=== PATIENT | female | born 1975 | race Caucasian/White ===

== ENCOUNTER 2021-06-03 02:04 | Day surgery (SDC) | payer OTHER, SELFPAY ==
[2021-05-24 13:30] VITALS: BMI 23.1
[2021-06-03 11:10] VITALS: BP 138/97; PULSE 101; RESP 18; TEMP 37.4; O2SAT 100
[2021-06-03] MEDS: LACTATED RINGERS 1,000 ML 150 ML IV CONT (11:14)
--- NOTE | 2021-06-03 11:23 | WPDGICN ---
Assessment and Plan Assessment and plan (1) Encounter for screening colonoscopy: Code(s): Z12.11 - Encounter for screening for malignant neoplasm of colon Status: Acute Assessment and Plan: Patient presents for screening colonoscopy. Her family history is significant grandmother had colon cancer mother may have had a colon polyp. Further recommendations will be given after endoscopy. GI Consult Note Consult date/time: 06/03/21 11:23 HPI: Lexie Abrams is a 45 year old female Presents for neoplasia screening. Patient reports that her own weight appetite bowel movements are normal. She did denies abdominal pain. She has had no bleeding. Family history is significant her grandmother had colon cancer, her mother had colon polyps. For these reasons patient presents for screening colonoscopy. Review of Systems Review of Systems: All systems reviewed & are unremarkable except as noted in HPI and below PMFSH Family History Family History (Updated 04/14/16 @ 23:21 by DOCTOR UNKNOWN) Mother Hypertension Father Patient's father is in good health Grandparent Carcinoma of colon Sibling Family history of malignant neoplasm of thyroid Social History Social History Smoking status: Never smoker Alcohol intake: current Drinks per week: 3 Living arrangements: with family Spiritual care concerns: No Meds Home Medications and Allergies Home Medications Medication Instructions Recorded Confirmed Type No Home Medications 05/24/21 05/24/21 History Allergies Allergy/AdvReac Type Severity Reaction Status Date / Time No Known Allergies Allergy Mild Unverified 06/03/21 11:09 Vital Signs Vital Signs - 24 hr 06/03/21 11:10 Temperature 99.4 F Pulse Rate 101 H Respiratory Rate 18 Blood Pressure 138/97 H Pulse Oximetry 100 Exam Narrative: Physical exam reveals patient to be alert. Vital signs stable. HEENT exam is unremarkable lungs are clear to auscultation and percussion heart is without murmur or extra sounds. Abdominal exam bowel sounds are present soft nontender with no hepatosplenomegaly. Digital external rectal exam is normal.
--- NOTE | 2021-06-03 12:04 | WPDANESEPPF ---
Anes - Initial Pre Proc Eval Procedure: Operation Date: 06/03/21 12:30 Proposed Procedures p Screening Colonoscopy - Ulises Hutchinson MD Date/Time: 06/03/21 12:04 Surgeon: Ulises Hutchinson MD Pre Op Diagnosis: neoplasm screening z12.11 Patient Data Age: 45 Gender: F Height: 1.75 m Weight: 59.6 kg Last Vital Signs Temp 99.4 F 06/03/21 11:10 Pulse 101 H 06/03/21 11:10 Resp 18 06/03/21 11:10 BP 138/97 H 06/03/21 11:10 Pulse Ox 100 06/03/21 11:10 Allergies Allergy/AdvReac Type Severity Reaction Status Date / Time No Known Allergies Allergy Mild Unverified 06/03/21 11:09 Home Medications Medication Instructions Recorded Confirmed Type No Home Medications 05/24/21 05/24/21 History Patient hx anesthesia problems: none Family hx anesthesia problems: none PMFSH Past Medical History Medical History (Updated 06/03/21 @ 12:01 by Jay Moulton MD) Healthy adult Family History Family History (Updated 04/14/16 @ 23:21 by DOCTOR UNKNOWN) Mother Hypertension Father Patient's father is in good health Grandparent Carcinoma of colon Sibling Family history of malignant neoplasm of thyroid Social History Social History Smoking status: Never smoker Alcohol intake: current Drinks per week: 3 Living arrangements: with family Spiritual care concerns: No Anes - Eval Final PreProcedure Day of Procedure 06/03/21 12:04 Patient weight: normal Heart: regular rate and rhythm Lungs: clear to auscultation Airway: Mallampati scale class II Neurological: alert and oriented Last oral intake: >/= 8 hours ASA classification: I Emergent: no Anesthetic plan: proceed Anesthesia type and monitoring: general GIVS and standard monitoring Informed Consent: The patient's anesthetic plan and its attendant risks and benefits were discussed with the patient/family/POA. Questions were solicited and answers provided to the satisfaction of the patient/family/POA.
[2021-06-03 12:26] VITALS: BP 102/69; PULSE 78; RESP 18; O2SAT 100
[2021-06-03 12:36] VITALS: BP 120/79; PULSE 78; RESP 18; O2SAT 100
[2021-06-03 12:46] VITALS: BP 124/80; PULSE 78; RESP 18; O2SAT 100
== END 2021-06-03 12:55 | disposition home or self-care (01) ==
PROVIDERS: PCP Emergency Medicine; Visit Provider Internal Medicine Gastroenterology
PROC: 0DJD8ZZ Inspection of Lower Intestinal Tract, Via Natural or Artificial Opening Endoscopic (ICD-10-PCS; CPT 45378; principal; 2021-06-03 12:30)
DX: Z12.11 Encounter for screening for malignant neoplasm of colon (principal); K64.8 Other hemorrhoids; Z83.71 Family history of colonic polyps
CPT/HCPCS: 45378; J2001; J2704; J7120

== ENCOUNTER → 2022-07-26 09:42 | Outpatient (CLI) | payer OTHER, SELFPAY ==
--- NOTE | ~2022-07-26 | MMUS_ITS ---
EXAMINATION: MM diagnostic ashwini LT w nan, US breast LT complete HISTORY: Small indeterminate nodular density reported in the left breast on CC view of outside screen ing mammogram of 06/28/2022 TECHNIQUE: Additional 3-D tomosynthesis images of the left breast were performed and synthetic 2-D im ages were generated. CAD analysis was submitted and interpreted. High resolution complete left breast ultrasound including all 4 quadrants and subareolar area was performed. COMPARISON: 06/28/2022 [facility] bilateral screening mammogram BREAST PARENCHYMAL COMPOSITION: The breasts are heterogeneously dense, which may obscure small masses . FINDINGS: MAMMOGRAPHIC FINDINGS: No suspicious mass, architectural distortion, malignant calcification, skin thickening or retraction of the left breast is detected. ULTRASOUND: No suspicious mass or shadowing, cyst or other significant sonographic finding is noted in the left b reast. IMPRESSION: 1. No mammographic evidence of malignancy 2. Routine mammographic screening is recommended BI-RADS Category 1: Negative Reviewed, dictated and finalized at location A. 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 No mammographic evidence of malignancy 2. Routine mammographic screening is recommended BI-RADS Category 1: Negative
== END ==
PROVIDERS: PCP Obstetrics & Gynecology; Visit Provider Obstetrics & Gynecology
DX: R92.8 Other abnormal and inconclusive findings on diagnostic imaging of breast (principal)
CPT/HCPCS: 76641; 77061; 77065; G0279

== ENCOUNTER → 2023-10-18 15:09 | Outpatient (CLI) | payer OTHER, SELFPAY ==
--- NOTE | ~2023-10-18 | MM_ITS ---
EXAMINATION: MM screening ashwini BI w nan HISTORY: Screening TECHNIQUE: Craniocaudal and mediolateral oblique 3-D tomosynthesis images were obtained and synthetic 2-D images were generated. CAD analysis was submitted and interpreted. COMPARISON: Comparison to multiple prior studies sequentially, with oldest reviewed study dated 11/28. BREAST PARENCHYMAL COMPOSITION: Dense: The breasts are extremely dense, which lowers the sensitivity of mammography. FINDINGS: There is no evidence of suspicious mass, calcification, or architectural distortion to sugg est malignancy in either breast. There has been no suspicious interval change. IMPRESSION: 1. No mammographic evidence of malignancy. 2. Recommend routine screening mammography in one year. BI-RADS Category 1: Negative Reviewed, dictated and finalized at location A. 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
== END ==
PROVIDERS: PCP Obstetrics & Gynecology; Visit Provider Obstetrics & Gynecology
DX: Z12.31 Encounter for screening mammogram for malignant neoplasm of breast (principal)
CPT/HCPCS: 77063; 77067

== ENCOUNTER 2024-08-18 05:59 | Emergency (ER) | payer OTHER, SELFPAY ==
[2024-08-18] VITALS (21 sets, daily range): BP systolic 113–135; BP diastolic 69–94; PULSE 78–119; RESP 14–22; TEMP 35.7–36.8; O2SAT 92–99
--- NOTE | 2024-08-18 07:00 | ED.GENADULT ---
HPI - General Adult General Chief complaint: Unspecified Stated complaint: body aches, chills Time Seen by Provider: 08/18/24 06:59 Source: patient and family ( ) Mode of arrival: ambulatory Limitations: no limitations History of Present Illness HPI narrative: patient presents with complaint of body aches, chills, nausea and mouth sores/ ulcers to the past 3 days. She had a tele doc appointment and was prescribed Tamiflu and Zofran is not having any relief. No recent travel. No sick contacts. She denies any sore throat or difficulty breathing. She states she can not get comfortable and the pain in her mouth can't even brush her teeth last night and this morning was unusual for her. her daughter had mono and pneumonia approximately 4 weeks ago. Patient does not take any medications including no chronic steroids and is not otherwise immunosuppressed for any reason. denies any rash anywhere else. Related Data Allergies Allergy/AdvReac Type Severity Reaction Status Date / Time No Known Allergies Allergy Mild Unverified 06/03/21 11:09 [facility] Past Medical History Medical History Healthy adult Family History Family History (Updated 04/14/16 @ 23:21 by DOCTOR UNKNOWN) Mother Hypertension Father Patient's father is in good health Grandparent Carcinoma of colon Sibling Family history of malignant neoplasm of thyroid Social History Social History Smoking status: Never smoker Alcohol intake: current Drinks per week: 3 Living arrangements: with family Spiritual care concerns: No Exam Narrative: GENERAL: well-nourished, in no acute distress although looks acutely ill and uncomfortable. HEAD: Normocephalic, atraumatic. EYES: Non injected, non icteric ENT: Nares clear, no rhinorrhea or epistaxis. Posterior oropharynx with mild erythema but otherwise without any lesions. Patient does have multiple mucosal lesions on lips which have ulcerated and now have slight crusting. There are also lesions on the buccal mucosa, particularly at dental line; tongue tacky mucous membrane with slight scalloping NECK: Supple. CHEST: Speaking in full sentences. No respiratory distress. lungs clear to auscultation bilaterally with good air movement no wheezes or consolidation or crackles. HEART: Tachycardic rate and rhythm. . ABDOMEN: Soft, nondistended. EXTREMITIES: Normal range of motion. No lower extremity edema. SKIN: Warm, dry, no rash on skin when exposed (legs, arms, face , etc). NEURO: No focal deficits. Alert and oriented x3. PSYCH: Normal mood and affect. Course Vital Signs Vital signs: Vital Signs Temperature 96.2 F L 08/18/24 06:02 Pulse Rate 119 H 08/18/24 06:02 Respiratory Rate 22 H 08/18/24 06:02 Blood Pressure 127/81 08/18/24 06:02 Pulse Oximetry 97 08/18/24 06:02 Oxygen Delivery Room Air 08/18/24 06:02 Temperature 98.3 F 08/18/24 09:01 Pulse Rate 78 08/18/24 09:08 Respiratory Rate 15 08/18/24 09:08 Blood Pressure 115/69 08/18/24 09:08 Pulse Oximetry 99 08/18/24 09:08 Oxygen Delivery Room Air 08/18/24 06:02 Medical Decision Making MDM Narrative Medical decision making narrative: Patient presents with complaint of body aches, chills, nausea, and mouth sores/ ulcerations of 3 days duration. In the emergency department she is afebrile with vital signs notable for mild tachypnea and tachycardia at 119 beats per minute. Only very mild leukocytosis, likely a stress response verses hemoconcentration. Rest of workup unremarkable. Vital signs have normalized i.e. tachycardia resolved. Patient provided prescriptions [id number] analgesic medication for what otherwise appears to be a generalized viral syndrome and she is also provided a prescription dexamethasone which she can uses a mouth rinse for the lesions. Provided contact information primary care physician as well and otherwise stable for discharge. Differential Diagnosis Differential Diagnosis: Aphthous stomatitis; herpes gingivostomatitis; herpangina ; medication side effect; acute viral syndrome; angular cheilitis; thrush; also considered bullous pemphigoid; nutritional deficiency; impetigo (though not typically inside mouth) Vital Signs Vital Signs: Vital Signs Temperature 96.2 F L 08/18/24 06:02 Pulse Rate 119 H 08/18/24 06:02 Respiratory Rate 22 H 08/18/24 06:02 Blood Pressure 127/81 08/18/24 06:02 Pulse Oximetry 97 08/18/24 06:02 Oxygen Delivery Room Air 08/18/24 06:02 Temperature 98.3 F 08/18/24 09:01 Pulse Rate 78 08/18/24 09:08 Respiratory Rate 15 08/18/24 09:08 Blood Pressure 115/69 08/18/24 09:08 Pulse Oximetry 99 08/18/24 09:08 Oxygen Delivery Room Air 08/18/24 06:02 Lab Data Lab results reviewed: Yes I reviewed the patient's lab results. 08/18/24 07:34 08/18/24 08:14 Labs: Lab Results 08/18/24 08/18/24 08/18/24 Range/Units 06:28 07:28 07:34 WBC 10.1 H (4.5-10.0) K/mm3 RBC 4.89 (4.2-5.4) M/mm3 Hgb 14.0 (12.0-15.0) g/dL Hct 42.5 (37.0-47.0) % MCV 86.9 (80-100) fl MCH 28.6 (26-34) pg MCHC 32.9 (32-36) g/dl RDW 12.9 (11.5-14.5) % Plt Count 159 (150-375) k/mm3 MPV 9.1 (7.4-10.4) fl Immature Gran % (Auto) 0.4 (0-0.5) % Neut % (Auto) 79.1 H (45.5-73.1) % Lymph % (Auto) 8.6 L (18.3-44.2) % Charles % (Auto) 11.5 H (2.6-8.5) % Eos % (Auto) 0.0 (0-4.4) % Baso % (Auto) 0.4 (0.2-1.2) % Lymph # (Auto) 0.87 L (0.9-3.2) K/mm3 Charles # (Auto) 1.2 H (0.1-0.6) K/mm3 Eos # (Auto) 0.0 (0-0.3) K/mm3 Baso # (Auto) 0.0 (0.0-0.1) K/mm3 Abs Immat Gran (auto) 0.04 H (0.00-0.031) K/mm3 Absolute Neuts (auto) 8.0 H (1.3-6.7) K/mm3 Absolute Nucleated RBC 0.000 (0.0-0.012) K/mm3 Nucleated RBC % 0.0 (0.0-0.2) % Sodium (137-145) mmol/L Potassium (3.4-5.0) mmol/L Chloride (98-107) mmol/L Carbon Dioxide (22-30) mmol/L Anion Gap (4-12) mmol/L BUN (7-17) mg/dL Creatinine (0.7-1.0) mg/dL Estim Creat Clear Calc ml/min Estimated GFR (59 - ) Glucose (65-110) mg/dL Calcium (8.4-10.2) mg/dL Influenza A (RT-PCR) Negative (Negative) Influenza B (RT-PCR) Negative (Negative) RSV (RT-PCR) Negative (Negative) SARS-CoV-2 RNA (RT-PCR) Negative (Negative) Group A Strep (PCR) Not detected (Negative) 08/18/24 Range/Units 08:14 WBC (4.5-10.0) K/mm3 RBC (4.2-5.4) M/mm3 Hgb (12.0-15.0) g/dL Hct (37.0-47.0) % MCV (80-100) fl MCH (26-34) pg MCHC (32-36) g/dl RDW (11.5-14.5) % Plt Count (150-375) k/mm3 MPV (7.4-10.4) fl Immature Gran % (Auto) (0-0.5) % Neut % (Auto) (45.5-73.1) % Lymph % (Auto) (18.3-44.2) % Charles % (Auto) (2.6-8.5) % Eos % (Auto) (0-4.4) % Baso % (Auto) (0.2-1.2) % Lymph # (Auto) (0.9-3.2) K/mm3 Charles # (Auto) (0.1-0.6) K/mm3 Eos # (Auto) (0-0.3) K/mm3 Baso # (Auto) (0.0-0.1) K/mm3 Abs Immat Gran (auto) (0.00-0.031) K/mm3 Absolute Neuts (auto) (1.3-6.7) K/mm3 Absolute Nucleated RBC (0.0-0.012) K/mm3 Nucleated RBC % (0.0-0.2) % Sodium 136 L (137-145) mmol/L Potassium 3.4 (3.4-5.0) mmol/L Chloride 102 (98-107) mmol/L Carbon Dioxide 29 (22-30) mmol/L Anion Gap 5 (4-12) mmol/L BUN 7 (7-17) mg/dL Creatinine 0.80 (0.7-1.0) mg/dL Estim Creat Clear Calc 76 ml/min Estimated GFR > 60 (59 - ) Glucose 101 (65-110) mg/dL Calcium 8.3 L (8.4-10.2) mg/dL Influenza A (RT-PCR) (Negative) Influenza B (RT-PCR) (Negative) RSV (RT-PCR) (Negative) SARS-CoV-2 RNA (RT-PCR) (Negative) Group A Strep (PCR) (Negative) Discharge Plan Discharge Clinical Impression: Stomatitis, Acute viral syndrome Patient Disposition: Home, Self-Care Condition: Stable Instructions: Antibiotic Form, Viral Syndrome (ED), Gingivostomatitis (ED) Additional Instructions: Your symptoms sound viral although you tested negative for covid, influenza A, influenza B, and RSV. You also tested negative for bacterial Strep. The mainstays of treatment are rest and supportive care, trying to sip water to maintain your hydration. For the mouth ulcers, you can use the dexamethasone steroid as a mouth rinse. Acetaminophen/Tylenol (maximum 4000 mg per day) is safe to take with NSAIDs (ibuprofen/Motrin) for pain relief. Follow-up with your primary care physician. If you do not have 1 the name of a doctor is listed below. return to the emergency department with any new or worsening symptoms. Prescriptions: New dexamethasone 0.5 mg/5 mL elixir 0.5 mg PO TID Qty: 237 0RF Rx Instructions: Use as a mouth rinse ibuprofen 600 mg tablet 600 mg PO TID PRN (Reason: pain) Qty: 30 0RF acetaminophen 500 mg capsule 1,000 mg PO Q6H PRN (Reason: pain) Qty: 30 0RF Follow-up/Referrals: Andrew Hess MD [Physician] - Cleveland Valadez MD [Physician] - ( Family practice) Stand Alone Forms: Work/School Release IP Time of Disposition: 08:52
[2024-08-18 07:11] LABS: Influenza A QL RT-PCR Negative (Negative); Influenza B QL RT-PCR Negative (Negative); RSV RNA, RT-PCR Negative (Negative); SARS-CoV-2 RNA PCR Negative (Negative)
[2024-08-18] MEDS: SODIUM CHLORIDE 0.9% IV 500 ML 999 ML IV CONT (07:37)
[2024-08-18 07:43] LABS: Basophils Percent Auto 0.4 % (0.2-1.2); Hematocrit 42.5 % (37.0-47.0); Immature Granulocyte Absolute 0.04 K/mm3 (0.00-0.031); Immature Granulocyte Percent A 0.4 % (0-0.5); Lymphocytes Absolute Auto 0.87 K/mm3 (0.9-3.2); Lymphocytes Percent Auto 8.6 % (18.3-44.2); Mean Corpuscular HGB Conc 32.9 g/dl (32-36); Mean Corpuscular Hemoglobin 28.6 pg (26-34); Mean Corpuscular Volume 86.9 fl (80-100); Mean Platelet Volume 9.1 fl (7.4-10.4); Monocytes Absolute Auto 1.2 K/mm3 (0.1-0.6); Monocytes Percent Auto 11.5 % (2.6-8.5); Neutrophils Percent Auto 79.1 % (45.5-73.1); Platelet Count Result 159 k/mm3 (150-375); Red Blood Count 4.89 M/mm3 (4.2-5.4); Red Cell Distribution Width 12.9 % (11.5-14.5); White Blood Count 10.1 K/mm3 (4.5-10.0)
[2024-08-18 08:10] LABS: Strep Group A RT-PCR NOT DETECTED (Negative)
[2024-08-18 08:44] LABS: Anion Gap 5 mmol/L (4-12); Blood Urea Nitrogen 7 mg/dL (7-17); Calcium 8.3 mg/dL (8.4-10.2); Carbon Dioxide 29 mmol/L (22-30); Chloride 102 mmol/L (98-107); Estimated CRCL calculation 76 ml/min; Estimated Glomerular Filt Rate > 60; Glucose 101 mg/dL (65-110); Potassium 3.4 mmol/L (3.4-5.0); Sodium 136 mmol/L (137-145)
== END 2024-08-18 09:09 | disposition home or self-care (01) ==
PROVIDERS: Emergency Medicine; Emergency Provider Student in an Organized Health Care Education/Training Program; PCP Emergency Medicine
DX: K12.1 Other forms of stomatitis (principal); B34.9 Viral infection, unspecified; Z20.822 Contact with and (suspected) exposure to COVID-19
CPT/HCPCS: 36415; 80048; 85025; 87637; 87651; 96360; 99283; J7040

== ENCOUNTER 2025-01-08 14:18 | Outpatient (CLI) | payer OTHER, SELFPAY ==
--- NOTE | ~2025-01-08 | MM_ITS ---
EXAMINATION: MM screening ashwini BI w nan HISTORY: Screening TECHNIQUE: Craniocaudal and mediolateral oblique 3-D tomosynthesis images were obtained and synthetic 2-D images were generated. CAD analysis was submitted and interpreted. COMPARISON: Comparison to multiple prior studies sequentially, with oldest reviewed study dated 02/13. BREAST PARENCHYMAL COMPOSITION: Dense: The breasts are extremely dense, which lowers the sensitivity of mammography. FINDINGS: There is possible focal architectural distortion centrally in the left breast on CC view. T he right breast is stable without evidence for malignancy. IMPRESSION: 1. Possible architectural distortion centrally in the left breast. 2. Additional mammographic views and possible breast ultrasound are recommended. BI-RADS Category 0: Incomplete: Needs additional imaging evaluation. Reviewed, dictated and finalized at location A. IMPRESSION: 1. Possible architectural distortion centrally in the left breast. 2. Additional mammographic views and possible breast ultrasound are recommended . BI-RADS Category 0: Incomplete: Needs additional imaging evaluation.
== END 2025-01-08 14:19 | disposition home or self-care (01) ==
LOC: MICIMG 14:20
PROVIDERS: PCP Emergency Medicine; Visit Provider Obstetrics & Gynecology
DX: Z12.31 Encounter for screening mammogram for malignant neoplasm of breast (principal); R92.8 Other abnormal and inconclusive findings on diagnostic imaging of breast
CPT/HCPCS: 77063; 77067

== ENCOUNTER 2025-03-24 08:12 | Outpatient (CLI) | payer OTHER, SELFPAY ==
--- NOTE | ~2025-03-24 | MMUS_ITS ---
EXAMINATION: MM diagnostic ashwini LT w nan, US breast LT complete HISTORY: Follow-up left breast asymmetry TECHNIQUE: Additional 3-D tomosynthesis images of the left breast were performed and synthetic 2-D im ages were generated. CAD analysis was submitted and interpreted. High resolution complete left breast ultrasound was performed. COMPARISON: Comparison to multiple prior studies sequentially, with oldest reviewed study dated 06/17. BREAST PARENCHYMAL COMPOSITION: Dense: The breasts are heterogeneously dense, which may obscure small masses FINDINGS: MAMMOGRAPHIC FINDINGS: There are no suspicious masses, calcifications or architectural distortion in the left breast to sugg est malignancy. Focal asymmetry compresses with spot views, compatible with superimposed fibroglandul ar content. ULTRASOUND: Complete US of all 4 quadrants of the left breast/s and retroareolar region was reviewed. Normal hete rogeneous echotexture without focal solid or cystic mass. IMPRESSION: 1. No evidence for malignancy in the left breast. 2. Routine yearly screening mammogram and regular clinical breast examination are recommended. BI-RADS Category 1: Negative Reviewed, dictated and finalized at location A. IMPRESSION: 1. No evidence for malignancy in the left breast. 2. Routine yearly screening mammogram and regular clinical breast examination a re recommended. BI-RADS Category 1: Negative
== END 2025-03-24 08:13 | disposition home or self-care (01) ==
LOC: MICIMG 08:13
PROVIDERS: PCP Emergency Medicine; Visit Provider Obstetrics & Gynecology
DX: R92.8 Other abnormal and inconclusive findings on diagnostic imaging of breast (principal)
CPT/HCPCS: 76641; 77061; 77065; G0279